=== PATIENT | female | born 1985 | race Two or more races ===

== ENCOUNTER 2022-08-11 08:24 | Outpatient (CLI) | payer OTHER ==
[~2022-08-11 08:24] MED LIST: LEVAQUIN750 MG PO; OBSTETRIX EC1 TAB.EC PO; PYRIDIUM DS200 MG PO
== END 2022-08-11 11:16 | disposition home or self-care (01) ==
LOC: SONOGRAMA 08:24
DX: N93.8 Other specified abnormal uterine and vaginal bleeding (principal)